=== PATIENT | male | born 2000 | race Caucasian/White ===

== ENCOUNTER 2019-02-25 23:26 | Emergency (ER) | payer OTHER ==
[~2019-02-25] VITALS: Ht 172.7 cm; Wt 64.5 kg
[2019-02-25 23:31] VITALS: BP 151/82
[2019-02-26] MEDS ORDERED: pseudoephedrine 30mg tablet PO ONE
[2019-02-26] MEDS ORDERED: ibuprofen tablet 400 MG TABLET PO ONE
[2019-02-26] MEDS ORDERED: HYDR-3686 PO (00:04)
[2019-02-26] MEDS ORDERED: PSEU-259 PO (00:04)
[2019-02-26] MEDS ORDERED: AMOX500C2 PO (00:04)
== END 2019-02-26 00:15 | disposition home or self-care (01) ==
LOC: ER 23:27
DX: T70.0XXA Otitic barotrauma, initial encounter (principal); H72.91 Unspecified perforation of tympanic membrane, right ear; Z79.899 Other long term (current) drug therapy; W16.012A Fall into swimming pool striking water surface causing other injury, initial encounter; Y93.39 Activity, other involving climbing, rappelling and jumping off; Y92.34 Swimming pool (public) as the place of occurrence of the external cause; Y99.8 Other external cause status
CPT/HCPCS: 99283